=== PATIENT | male | born 1990 | race African-American/Black ===

== ENCOUNTER 2017-08-22 21:07 | Emergency (ER) | payer OTHER ==
[~2017-08-22] VITALS: Ht 177.8 cm; Wt 105.7 kg
--- NOTE | 2017-08-22 22:48 | ED.ADGEN ---
Past History Past Medical History: No Pertinent History Past Surgical History: Other Alcohol Use: None Drug Use: None Adult General Chief Complaint Chief Complaint " I was at [place] the other day... the tried to drain this Lt ear...and gave me a pill.... 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 Pt. denies any specific ill contacts. No overseas travel. Patient not on any current antibiotics. Review of Systems Review of Systems Constitutional: Denies fever or chills [] Eyes: Denies change in visual acuity, redness, or eye pain [] HENT: Denies nasal congestion or sore throat []complaints of left ear cellulitis and abscess Respiratory: Denies cough or shortness of breath [] Cardiovascular: No additional information not addressed in HPI [] GI: Denies abdominal pain, nausea, vomiting, bloody stools or diarrhea [] : Denies dysuria or hematuria [] Musculoskeletal: Denies back pain or joint pain [] Integument: Denies rash or skin lesions [] Neurologic: Denies headache, focal weakness or sensory changes [] Endocrine: Denies polyuria or polydipsia [] All other systems were reviewed and found to be within normal limits, except as documented in this note. Family History Family History Noncontributory Current Medications Current Medications Current Medications Medications (Trade) Dose Ordered Sig/Vida Start Time Stop Time Status Last Admin Dose Admin Ceftriaxone Sodium (Rocephin Im) 1 gm 1X ONCE 08/23/17 00:00 08/23/17 00:01 DC 08/22/17 23:59 1 GM Ketorolac Tromethamine (Toradol) 60 mg 1X ONCE 08/23/17 00:30 08/23/17 00:30 DC 08/22/17 23:59 60 MG Trimethoprim/ Sulfamethoxazole (Bactrim Ds) 1 tab 1X ONCE 08/23/17 00:00 08/23/17 00:01 DC 08/22/17 23:59 1 TAB Allergies Allergies Allergies Coded Allergies Type Severity Reaction Last Updated Verified No Known Drug Allergies 08/22/17 No Physical Exam Physical Exam Constitutional: Well developed, well nourished, moderately acute distress, non- toxic appearance. [] HENT: Normocephalic, atraumatic, left ear cellulitis, oropharynx moist, no oral exudates, nose normal. [] Eyes: PERRLA, EOMI, conjunctiva normal, no discharge. [] Neck: Normal range of motion, no tenderness, supple, no stridor. [] Cardiovascular:Heart rate regular rhythm, no murmur [] Lungs & Thorax: Bilateral breath sounds clear to auscultation [] Abdomen: Bowel sounds normal, soft, no tenderness, no masses, no pulsatile masses. [] Skin: Warm, dry, no erythema, no rash. [] Back: No tenderness, no CVA tenderness. [] Extremities: No tenderness, no cyanosis, no clubbing, ROM intact, no edema. [] Neurologic: Alert and oriented X 3, normal motor function, normal sensory function, no focal deficits noted. [] Psychologic: Affect normal, judgement normal, mood normal. [] Current Patient Data Vital Signs Vital Signs Date Time Temp Pulse Resp B/P (MAP) Pulse Ox O2 Delivery O2 Flow Rate FiO2 08/22/17 23:45 98.9 88 18 129/87 (101) 98 Room Air EKG EKG [] Radiology/Procedures Radiology/Procedures [] Course & Med Decision Making Course & Med Decision Making Pertinent Labs and Imaging studies reviewed. (See chart for details) Procedure Note: - Prep Lt ear with betadine. Incision with 18 g. needle with release of collection of pus and blood for Lt ear abscess. Pt.to use warm compresses and follow up with primary. Follow up cultures taken here. Bactrim DS twice a day. Must follow-up [] Final Impression Final Impression 1. Otitis[] Lt. 2. Abscess/ Cellulitis Problems: Dragon Disclaimer Dragon Disclaimer This electronic medical record was generated, in whole or in part, using a voice recognition dictation system. CHARY PAZ MD Aug 22, 2017 22:48
[2017-08-22] MEDS ORDERED: SULF1TAB24 PO (23:44)
[2017-08-22 23:45] VITALS: BP 129/87
[2017-08-23] MEDS ORDERED: SMZ/TMP 800/160MG TABLET. PO ONE
[2017-08-23] MEDS ORDERED: cefTRIAXone IM 1 GM VIAL IM ONE
[2017-08-23] MEDS ORDERED: KETOROLAC 60 MG/2 ML VIAL. IM ONE (00:30)
== END 2017-08-23 00:10 | disposition home or self-care (01) ==
LOC: ER 21:07
DX: H66.42 Suppurative otitis media, unspecified, left ear (principal)
CPT/HCPCS: 69000; 87070; 96372; 99284; J0696; J1885; 87186